=== PATIENT | male | born 1955 | race Two or more races ===

== ENCOUNTER 2017-04-17 05:52 | Day surgery (SDC) | payer OTHER ==
[2017-04-03 11:19] VITALS: BMI 25.0
[2017-04-17] MEDS ORDERED: Propofol 10 mg/ml Inj (20 ML) ONE (07:41)
[2017-04-17] MEDS ORDERED: Midazolam 2 MG/2 ML VIAL ONE (07:41)
[2017-04-17] MEDS ORDERED: Phenylephrine 10 mg/ml Inj ONE (07:44)
[2017-04-17] MEDS ORDERED: Succinylcholine Chloride 20 mg/ml Syr (5 ml) IV ONE (07:44)
[2017-04-17] MEDS ORDERED: ePHEDrine 50 mg/ml Inj ONE (07:44)
[2017-04-17] MEDS ORDERED: Atropine 0.4 mg/ml Inj (1 mL) ONE (07:45)
[2017-04-17] MEDS ORDERED: Bupivacaine HCl 0.25% PF (10 ml) Inj ONE ×2 (07:47→11:12)
[2017-04-17] MEDS ORDERED: Lidocaine 2% Inj (20ml) ONE (07:47)
[2017-04-17] MEDS ORDERED: Propofol 10 mg/ml 1,000 MG/100 ML VIAL ONE (07:59)
[2017-04-17] MEDS ORDERED: Clindamycin 600mg/50ml NS 600 MG/50 ML BAG IVPB ONE (08:20)
[2017-04-17] MEDS ORDERED: Dexamethasone 4 mg/1 ml ONE (11:07)
[2017-04-17] MEDS ORDERED: Bacitracin Ointment 30 GM TUBE ONE (11:19)
[2017-04-17] MEDS ORDERED: Oxycodone/Acetaminophen 5/325 mg Tab PO STA (11:40)
[2017-04-17] MEDS ORDERED: Oxycodone/Acetaminophen 5/325 mg Tab PO PRN ×2 (11:40→11:57)
[2017-04-17] MEDS: HYDROmorphone 0.5 mg/0.5 ml ISec IVP PRN ×3 (11:45→12:15)
[2017-04-17] MEDS ORDERED: Lactated Ringer's 1,000 ML IV ONE (12:16)
[2017-04-17 13:10] VITALS: RESP 16; O2SAT 95
[2017-04-17 14:42] VITALS: BP 122/70; PULSE 62; TEMP 97.3
--- NOTE | 2017-04-17 14:52 | RAD ---
Left foot two views History: Status post left foot surgery Comparison: X-ray dated 03/10/2017 Findings: Status post hallux valgus repair with screw traversing the 1st metatarsal head. Postsurgical changes at the 2nd metatarsal head with wire fixation of the 2nd digit extending from the metatarsal bone to the distal phalanx. Soft tissue swelling within the dorsal soft tissues of the midfoot. Degenerative changes with narrowing of the tibiotalar joint space. Overlying bandages, limit evaluation. Impression: Postsurgical changes.
--- NOTE | 2017-04-18 09:37 | OP ---
PROCEDURE DATE: 04/17/2017 PRIMARY SURGEON: Jaydon Serrano DPM. CUT OFF SAW OPERATOR: Dave Rowe DPM, PGY2; and Vilma Shaw DPM, PGY1. ANESTHESIOLOGIST: Dr. Hassan. ANESTHESIA TYPE: MAC IV sedation with local. PREOPERATIVE DIAGNOSES: 1. Left foot metatarsus primus varus with hallux abductus, bunion deformity. 2. Left planter flexed second metatarsal head with underlying hyperkeratotic lesion due to pressure. 3. Left foot second digit proximal interphalangeal joint hammer toe deformity/burst open fracture. 4. Left foot tailor's bunion. POSTOPERATIVE DIAGNOSES: 1. Left foot metatarsus primus varus with hallux abductus, bunion deformity. 2. Left planter flexed second metatarsal head with underlying hyperkeratotic lesion due to pressure. 3. Left foot second digit proximal interphalangeal joint hammertoe deformity/burst open fracture. 4. Left foot tailor's bunion. PROCEDURES PERFORMED: 1. First metatarsal bunionectomy with sudden ostotomy and screw fixation. 2. Left foot second metatarsal head resection. 3. Left foot second digit proximal interphalangeal joint arthrodesis with K-wire fixation. 4. Right foot tailor's bunionectomy. SPECIMEN: 1. Left foot second metatarsal head. 2. Left foot first ray bone. 3. Left foot fifth metatarsal bone. INDICATIONS: The patient is a 61-year-old male with the above stated diagnosis. The patient has exhausted all conservative treatment options provided by Dr. Goldsmith on an outpatient basis and is now in need of surgical intervention. The patient signed the surgical consent after careful estimation of risks, benefits, complications and alternatives for the proposed surgical procedures. No guarantees were given nor implied. All patient's questions were answered to his satisfaction. PREPARATION: The patient's n.p.o. status was confirmed prior to bringing the patient to the operating room. The patient was brought into the operating room and placed on the operating room table in a supine position. A well-padded pneumatic tourniquet was applied in a supramalleolar position to the left ankle and set at 250 mmHg to be inflated when the procedure began. Once the IV sedation was confirmed and achieved the received a total of 30 mL of the 1:1 mixture of 1% lidocaine plain and 0.25% Marcaine plain in a local block type fashion to the left foot. Once local anesthesia was achieved, the patient's left foot was then prepped and draped in a normal sterile manner. The left foot was exsanguinated, tourniquet was inflated the procedures began. PROCEDURE#1: The left foot bunionectomy with screw fixation. Attention was then directed to the dorsal medial aspect of the first metatarsal head of the left foot, where approximately 6 cm linear longitudinal incision was made medial and parallel to the tendon of the extensor hallucis longus involving the contour deformity. This incision was deepened into subcutaneous tissue layers using a combination of sharp and blunt dissection. Care was taken to identify, avoid, and retract all the neurovascular structures, all bleeders were cauterized and ligated as needed. At this time, an inverted brothers type capsulotomy was performed over the dorsal aspect of the first metatarsal phalangeal joint. The periosteum and capsular structures were then carefully dissected free of the osseous attachments and exposing the dorsal and medial surfaces of the first metatarsal to the operative site. Next, utilizing an operating bone saw, the dorsal and medial bone prominences were set and passed to the operative field. All rough edges were then smoothed down with a bone rasp. Attention was then directed to the lateral aspect of the extensor hallucis longus tendon, which was retracted medially and approximately 1 cm linear longitudinal incision was made lateral and parallel to the extensor hallucis longus tendon into the first interspace and using blunt dissection extended down to the metatarsal-fibular sesamoid apparatus using a #15 blade lateral capsulotomy was preformed in the first metatarsophalangeal joint and fibular sesamoid suspensory ligaments were resected with a long correction of hallux abductus component of bunion deformity. Surgical site was then flushed with copious amount of sterile normal saline. Attention was then re-directed to the medial aspect of the first metatarsal head. Next hip was externally rotated and knee was flushed to bring medial surface of the foot to superior views to allow better visualization of the medial aspect of the first metatarsal head, bone osteotomy cut. Attention was then re-directed to the medial aspect of the first metatarsal head where an inverted V-type osteotomy was created at metaphyseal region of the bone utilizing an oscillating saw. The apex of the osteotomy was placed distally with the proximally in a planter and dorsal orientation. Dorsal arm was made long to accommodate for internal fixation. Upon completion of the osteotomy, the capital fragment was then distracted intact laterally in a minimal clutch position upon the first metatarsal shaft. At this time, one 0.045 inch K-wire was then introduced from dorsal to planter across the osteotomy site to serve as temporary fixation. Following standard AO principles technique, two 2.7 x 60 mm screws were oriented across the osteotomy site from distal, dorsal, supine, to proximal; however, planter cut of the osteotomy site was noted to be distracted and compression was not adequately achieved. At this time, these two surgical screws were then and a Synthes 2.7 x 80 mm screw was inserted in a technique from proximal dorsal to distal plantar with no violation of sesamoid metatarsal joint. At this time, compression was found to be adequate and fracture fragment was stably adhered to the shaft of first metatarsal. Attention was directed to the remaining medial bone shelf, which was then resected using the oscillating bone saw and passing the operative field. Correction of deformity was assessed and found to be adequate at this time. Surgical site was then flushed with copious amount of sterile saline. Periosteum and capsular structures were reapproximated and coapted using a combination of 2-0 and 3-0 Vicryl. Redundant capsular tissue was dissected as needed. Subcuticular suture was then reapproximated and coapted using 4-0 Vicryl. Skin was reapproximated using 4-0 nylon in a simple suture type technique. PROCEDURE #2: Left second metatarsal head resection. At this time attention was then directed to the dorsal aspect of the second metatarsal where an approximately 4 cm medial longitudinal incision was made overlying the second metatarsophalangeal joint and extending proximally using #15 blade. This incision was extended through subcutaneous tissue layers with care being taken to identify and avoid and retract all vital neurovascular structures. All bleeders were cauterized and ligated as needed. At this time, periosteal and capsular incision was made along the full length of the incision and extensor tendons were retracted laterally and medial periosteal structures were retracted medially, thus full exposing distal one-third of second metatarsal into operative view. At this time, an operating saw was introduced and an oblique type osteotomy was oriented from distal dorsal to plantar proximal using the operating saw. Once the osteotomy was complete, distal fragment which consisted of the cartilaginous surface of the second metatarsal head was excised and passed from the operative field. Surgical site was then flushed with copious amounts of sterile saline. At this time, periosteal structures were reapproximated using 3-0 Vicryl. Skin was reapproximated using 4-0 nylon. At this time, attention was directed to the planter aspect of the foot underlying the patient's second metatarsal, where an approximately 1.5 cm in diameter hyperkeratotic lesion was noted that had previously been noted to be underlying the pre-existing metatarsal head. With plantar flexor bone deformity resolved, hyperkeratotic tissue was debrided of its non-viable hyperkeratotic tissue. Plantar redundant skin was noted inferior to hyperkeratotic cap. At this time, approximately an 1 cm ellipsoid incision was made through the dermal tissue, which was then excised was then removed. Surgical site was then flushed with copious amounts of sterile saline. Remaining skin margins were then reapproximated using full thickness 3-0 nylon sutures in a simple suture type fashion. PROCEDURE #3: Left foot second digit hammertoe correction with K-wire fixation, arthrodesis. Attention was then directed to the dorsal aspect of the second digit of the patient's left foot where a transverse elliptical incision measuring approximately 1 cm across was made overlying the proximal interphalangeal joint of the digit. These incisions were then deepened through subcutaneous tissues with care being taken to identify, avoid, and retract all viable neurovascular structures. was then excised and passed from the operative filed. All bleeders were cauterized and ligated as needed. At this time, a transverse tenotomy and capsulectomy was performed to the level of the proximal interphalangeal joint of the second digit. The head of the proximal phalanx and the base of the middle phalanx were capsular and ligamentous attachments and brought into operative field once retractions of capsular and periosteal structures was accommodated. Next, utilizing an oscillating saw, the cartilaginous surface of the head of the proximal phalanx was resected and passed from the operative filed. The base of the middle phalanx with subchondral plate intact was sent and passed from the operative field. At this time, a 0.045 inch K-wire was used to fenestrate subchondral plates of arthroplastied proximal interphalangeal joint bone margins. With this step complete, surgical site was then flushed with copious amounts of sterile saline. Next, a double ended 0.045 inch K-wire was then driven from the base of the middle phalanx, entering the distal tuft of the second digit and K-wire was then retrograded proximally into the remaining aspect of the proximal phalanx down through the second metatarsal shaft resulting in a plantigrade position of the digit to the metatarsal. Correction of the deformities was assessed at this time and found to be adequate. At this time, surgical site was then flushed with copious amounts of sterile saline. Tendon was reapproximated using 3-0 Vicryl, skin was reapproximated using 4-0 nylon in a simple suture type fashion. Noted at this time, the tourniquet was deflated at the 97 minute tony. Left lower extremity was allowed to re-perfuse over a 50-minute period. After relaxation of 50-minute period, the left foot was then exsanguinated and tourniquet was re-inflated for the remainder of the procedures/operative time. PROCEDURE #4: Left foot tailor's bunionectomy. Attention was then directed to the dorsolateral aspect of the fifth metatarsal head of the left foot where approximately 3-cm of the longitudinal incision was made lateral and parallel to the extensor digitorum longus involving the contour of the deformity using #15 blade, this incision was then extended through subcutaneous tissue combination of sharp and blunt dissection. The care was taken to identify result of neurovascular structures. All bleeders were cauterized and ligated as needed. At this time, a linear longitudinal capsulotomy was performed over the dorsal lateral aspect of the fifth metatarsal phalangeal joint. Periosteal metaphyseal structures were then carefully dissected through the osseous attachment, resected medially and laterally to expose the head of the fifth metatarsal to surgical view. Next, utilizing an operating bone saw the dorsal and lateral prominences were resected and passed from the operative field. All rough edges were then smoothed down with bone rasp. At this time, correction of the deformities found to be excellent. Surgical site was then flushed with copious amounts of sterile saline. Periosteal and capsular structures were reapproximated using 3-0 Vicryl. The redundant capsular tissue was resected as needed. The subcutaneous tissue was reapproximated using 4-0 Vicryl. Skin was reapproximated using 4-0 nylon in a simple suture type fashion. At this time, all procedures complete, the patient received a total of 15 mL of 0.25% Marcaine plain in a local block type fashion to the left foot. The patient also received a total of 3 mL of dexamethasone 4 mg/mL in a local block type to the surgical site. The foot was then cleansed with sterile saline and hydrogen peroxide mixture. Surgical sites were then dressed with Betadine-soaked Adaptic, 4x4 gauze, Kerlix, Webril, and the patient was placed in a posterior splint. The patient is to be non-weightbearing to the left lower extremity, to be gait trained postoperatively. POSTOPERATIVE CONDITION: The patient tolerated the anesthesia and procedures well and was escorted to the recovery room with vital signs stable and neurovascular status intact to the left foot. The patient had no complaints or complications postoperatively nor any discomfort. The patient will follow up with Dr. Goldsmith in his office on an outpatient basis. Dave Rowe DPM
[2017-04-18] MEDS ORDERED: Enoxaparin 40 mg Syringe SC SCH (10:00)
== END 2017-04-17 13:53 | disposition home or self-care (01) ==
LOC: C.SDS 05:52
PROVIDERS: ATTEND Podiatrist
DX: M20.12 Hallux valgus (acquired), left foot (principal); M21.6X2 Other acquired deformities of left foot; M20.42 Other hammer toe(s) (acquired), left foot; M25.772 Osteophyte, left ankle; M20.11 Hallux valgus (acquired), right foot; Q66.21 Congenital metatarsus primus varus
CPT/HCPCS: 28122; 28285; 28288; 73620; 82948; 88304; 97116; 97161; C1713; C1769; G8978; G8979; G8980; J1100; J1170; J2250; J2405; J2704; J3010; J7120

== ENCOUNTER 2017-05-24 05:49 | Day surgery (SDC) | payer OTHER ==
[2017-04-03 11:32] VITALS: BMI 25.0
[2017-05-24] MEDS ORDERED: Bupivacaine HCl 0.5% PF (30 ml) Inj ONE (07:10)
[2017-05-24] MEDS ORDERED: Lidocaine 2% Inj (20ml) INFIL ONE (07:28)
[2017-05-24] MEDS ORDERED: Propofol 10 mg/ml Inj (20 ML) ONE (07:47)
[2017-05-24] MEDS ORDERED: Midazolam 2 MG/2 ML VIAL ONE (07:47)
[2017-05-24] MEDS ORDERED: Morphine 4 MG/ML VIAL IVP PRN (08:34)
--- NOTE | 2017-05-24 08:41 | PCM.SURG1 ---
Surgeon's Initial Post Op Note - Surgeon's Notes Surgeon: Dr. Jaydon mcintosh, DPM Plumbing Instructor: Dr. Dave Rowe, PGY-2 Type of Anesthesia: General IV, Local (1:1 mix 0.5% marcaine to 1% lidocaine) Anesthesia Administered By: Dr. Desirae MD Pre-Operative Diagnosis: 1) Left foot 2nd digit prominet painful hardware. 2) Entrapped painful sutures Operative Findings: See dictation Post-Operative Diagnosis: Same as above Operation Performed: 1) Removal of k-wire left 2nd digit. 2) Removal of entrapped dermal/epidermal sutures Specimen/Specimens Removed: none Estimated Blood Loss: EBL {In ML}: 1 Blood Products Given: N/A Drains Used: No Drains Post-Op Condition: Good Date of Surgery/Procedure: 05/24/17 Time of Surgery/Procedure: 08:41
--- NOTE | 2017-05-24 09:03 | RAD ---
PROCEDURE: Left Foot Radiographs. HISTORY: s/p left foot surgery COMPARISON: None. FINDINGS: BONES: Removal of 2nd digit fixation pin. Postsurgical changes involving the 1st and 2nd digits. No acute fracture. JOINTS: As above. SOFT TISSUES: Postsurgical changes. OTHER FINDINGS: None. IMPRESSION: Interval removal of 2nd digit fixation pin with associated postsurgical changes. No other significant interval change.
[2017-05-24 09:54] VITALS: O2SAT 97
[2017-05-24 12:04] VITALS: BP 107/62; PULSE 52; RESP 15; TEMP 97.2
--- NOTE | 2017-05-31 04:35 | OP ---
PROCEDURE DATE: 05/24/2017. PREOPERATIVE DIAGNOSES: 1. Left foot second digit prominent painful hardware. 2. Entrapped painful sutures from prior surgical sites. POSTOPERATIVE DIAGNOSES: 1. Left foot second digit prominent painful hardware. 2. Entrapped painful sutures from prior surgical sites. PROCEDURE PERFORMED: 1. Right foot removal of K-wire left second digit. 2. Removal of entrapped dermal epidermal sutures. SURGEON: Jaydon Serrano DPM. FIRE PATROL: Dave Rowe DPM, PGY2. TYPE OF ANESTHESIA: IV sedation with local. ANESTHESIOLOGIST: Dr. Merrill. INDICATIONS: The patient is a 61-year-old male with the above stated diagnoses. The patient has exhausted all conservative treatment options, is now in need of surgical intervention. The patient signed the surgical consent after careful explanation of risks, benefits, complications and potential alternatives to proposed surgical procedure. No guarantees were either given nor implied. All patient's questions were answered to his satisfaction. PREPARATION: The patient's n.p.o. status was confirmed prior to bringing the patient to the operating room. The patient was brought into the operating room and placed on the operating room table in a supine position. A well-padded pneumatic tourniquet was applied in the supramalleolar position to the left ankle with less than 250 mmHg to be inflated once the procedure has began. Once IV sedation was confirmed to have been achieved, the patient received a total of 20 mL of 1:1 mixture of 0.5% Marcaine plain to 1% lidocaine plain in a local block type fashion to the surgical areas. Once local anesthesia was confirmed to have been achieved, the patient's left foot was then prepped and draped in the usual sterile manner. Tourniquet was inflated and the procedure began. PROCEDURE #1: Left foot second digit removal of hardware. Attention was directed to the distal aspect of the patient's left second digit where prominent K-wire was visualized and at this time with digit noted to be successfully anesthetized, wire was used and transaction and tunnel suture was used to remove K-wire from the second digit, it has been noted that no fragmentation of hardware occurred. The surgical site was then flushed with copious amounts of sterile saline. Surgical site was then dressed with bacitracin and dry sterile dressings. PROCEDURE #2: Removal of entrapped dermal epidermal sutures. Attention was then directed to 2 areas where surgical incisions were noted to have sutures still intact. Dorsal medial prior bunion surgical site and plantar second metatarsal surgical site. At this time, local area is being fully anesthetized, #15 blade and Adson-Brown forceps were used to clear the area of covering epidermal tissue down to epidermal dermal junctions to fully expose sutures, which was then cut, removed completely, and packed to the operating field. All sutures within view of both incision site extending from proximal to distal reapproximation points were removed. Surgical sites were then cleansed with sterile saline, dressed with Xeroform gauze, 4 x 4 gauze and dry sterile dressings. The patient's left foot was then dressed with Kerlix and Coban. Tourniquet was deflated . Procedure were complete. POSTOPERATIVE CONDITION: The patient tolerated the anesthesia and procedure well and was escorted to the recovery room with vital signs stable and neurovascular status intact to the left foot. The patient had no complaints or complications. The patient will follow up with Dr. Serrano in his office on an outpatient basis. Dave Rowe DPM
== END 2017-05-24 10:05 | disposition home or self-care (01) ==
LOC: C.SDS 05:49
PROVIDERS: ATTEND Podiatrist
DX: Z47.2 Encounter for removal of internal fixation device (principal); T84.84XA Pain due to internal orthopedic prosthetic devices, implants and grafts, initial encounter; Z98.890 Other specified postprocedural states; I10 Essential (primary) hypertension; E78.5 Hyperlipidemia, unspecified; Z88.0 Allergy status to penicillin; Z88.1 Allergy status to other antibiotic agents; Z91.041 Radiographic dye allergy status; Y83.8 Other surgical procedures as the cause of abnormal reaction of the patient, or of later complication, without mention of misadventure at the time of the procedure
CPT/HCPCS: 20680; 73620; J2250; J2704; J3010